=== PATIENT | male | born 1945 | race Two or more races ===

== ENCOUNTER 2022-11-15 05:07 | Emergency (ER) | payer OTHER ==
[~2022-11-15] VITALS: Ht 180.3 cm; Wt 99.8 kg
[2022-11-15] MEDS ORDERED: LOSARTAN POTASS25 MG PO (05:25)
[2022-11-15] MEDS ORDERED: VAZALORE81 MG PO (05:25)
[2022-11-15] MEDS ORDERED: CRESTOR5 MG PO (05:26)
[2022-11-15] MEDS ORDERED: PAXLOVID 300-11 EACH PO (10:28)
[2022-11-15] MEDS ORDERED: ZITHROMAX TRI-500 MG PO (10:28)
== END 2022-11-15 10:41 | disposition home or self-care (01) ==
LOC: ER 05:07 → EDBD 06:26 → ER 10:41
DX: U07.1 COVID-19 (principal)